=== PATIENT | male | born 1950 | race Caucasian/White ===

== ENCOUNTER → 2016-07-01 | Outpatient (CLI) | payer OTHER ==
[~2016-07-01] MED LIST: ALPRAZOLAM 0.0.25 M1 PO; AMOXICILLIN875 MG PO; ANTIVERT25 MG PO; ASPIRIN EC81 M1 PO; ASPIRIN81 M2 PO; ASTEPRO NS; B-100 COMPLEX1 EAC1 PO; CYMBALTA30 MG PO; IBUPROFEN 200200 M1 PO; IBUPROFEN 600600 M1 PO; LEVAQUIN 500 M500 MG PO; LYRICA 75 MG CA75 MG PO; MULTIVITAMINS PO; NORCO 5-325 TA1 EACH PO; NUVIGIL PO; OMEGA-31000 MG PO; PANCREASE PO; PRILOSEC 20 MG20 MG PO; SINGULAIR 10 MG10 M1 PO; TIROSINT75 MCG PO; VYTORIN 10-201 EACH PO; VYTORIN 10-401 EACH PO; ZOFRAN ODT4 MG PO; ZOFRAN4 MG PO; ZYRTEC PO
== END ==
LOC: RAD 15:31
DX: R07.89 Other chest pain (principal); R06.2 Wheezing; R05 Cough